=== PATIENT | female | born 1995 ===

== ENCOUNTER 2019-06-03 20:22 | Emergency (ER) | payer OTHER ==
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
[2019-06-03 21:14] VITALS: BP 114/69
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
[2019-06-03] MEDS ORDERED: ULTRAM PO ONE (22:50)
[2019-06-03] MEDS ORDERED: IBUPROFEN PO ONE ×2 (22:50→22:51)
[2019-06-03] MEDS ORDERED: ULTRAM ONE (22:51)
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
== END 2019-06-04 01:15 | disposition home or self-care (01) ==
LOC: ED 20:22
DX: S46.912A Strain of unspecified muscle, fascia and tendon at shoulder and upper arm level, left arm, initial encounter (principal); S53.402A Unspecified sprain of left elbow, initial encounter; G44.319 Acute post-traumatic headache, not intractable; Z91.09 Other allergy status, other than to drugs and biological substances; V89.2XXA Person injured in unspecified motor-vehicle accident, traffic, initial encounter; Y93.89 Activity, other specified; Y92.410 Unspecified street and highway as the place of occurrence of the external cause; Y99.8 Other external cause status
CPT/HCPCS: 70450